=== PATIENT | female | born 1995 | race Caucasian/White ===

== ENCOUNTER 2022-01-21 14:09 | Emergency (ER) | payer MEDICAID ==
[~2022-01-21] VITALS: Ht 167.6 cm; Wt 92.1 kg
[2022-01-21 14:13] VITALS: BP 138/75
--- NOTE | 2022-01-21 14:34 | NUR ---
26 Y/O F C/O WENT TO [facility] TODAY TO CONFIRM AND ASK FOR MADICATION. WAS CONFIRMED BY URINE. SHE WAS TOLD TO GO TO ER TO R/O POSSIBLE ECTOPIC . NAHID PMH: GASTRIC SLEEVE 10/2021
--- NOTE | 2022-01-21 14:34 | NUR ---
ULTRASOUND AT BEDSIDE.
--- NOTE | 2022-01-21 14:37 | NUR ---
LAB AT BEDSIDE.
--- NOTE | 2022-01-21 14:52 | NUR ---
26/F PRESENTS TO ED S/P REFERRAL [facility]. PATIENT STATES SHE WENT TO [facility] REQUESTING TO CONFIRM , STATES SHE HAD A POSITIVE URINE TEST AND ULTRASOUND SHOWED POSSIBLE ECTOPIC . PATIENT DENIES N/V/D, ABDOMINAL PAIN, HEADACHE, DIZZINESS.
--- NOTE | 2022-01-21 14:58 | NUR ---
Jerardo camarillo in [facility] - 01/21/22 at 1458 by [email or web address] ULTRASOUND AT PATIENT BEDSIDE
--- NOTE | 2022-01-21 14:59 | NUR ---
ULTRASOUND AT BEDSIDE.
[2022-01-21 15:32] LABS: BASOPHILS % (AUTO) 0.4 % (0.0-2.0); EOSINOPHILS % (AUTO) 0.4 % (0.0-4.0); HEMOGLOBIN 12.9 g/dL (12.0-16.0); LYMPHOCYTES # (AUTO) 1.5 K/uL (2.5-16.5); LYMPHOCYTES % (AUTO) 18.5 % (20.5-51.1); MEAN CORPUSCULAR HEMOGLOBIN 25 pg (27-31); MEAN CORPUSCULAR HGB CONC 32 g/dL (33-37); MEAN CORPUSCULAR VOLUME 77.7 fL (80-94); MONOCYTES # (AUTO) 0.4 K/uL (0.8-1.0); MONOCYTES % (AUTO) 4.4 % (1.7-9.3); NEUTROPHILS # (AUTO) 6.3 K/uL (1.8-7.7); NEUTROPHILS % (AUTO) 76.3 % (42.2-75.2); PLATELET COUNT (AUTO) 266 K/uL (140-450); RED BLOOD CELL COUNT(AUTO) 5.14 MIL/uL (4.20-5.40); RED CELL DISTRIBUTION WIDTH 13.9 % (11.6-13.7); WHITE BLOOD COUNT (AUTO) 8.3 K/uL (4.8-10.8)
[2022-01-21 15:36] LABS: ANION GAP 14.8 (8-16); CARBON DIOXIDE 25.1 mmol/L (21-32); CREATININE 0.6 mg/dL (0.6-1.3); POTASSIUM 3.9 mmol/L (3.5-5.1)
[2022-01-21 15:43] LABS: APPEARANCE,URINE CLEAR (CLEAR); BILIRUBIN,URINE 1+ (NEGATIVE); BLOOD, URINE NEGATIVE (NEGATIVE); COLOR,URINE YELLOW (YELLOW); LEUKOCYTE ESTERASE ,URINE NEGATIVE (NEGATIVE); NITRITE, URINE NEGATIVE (NEGATIVE); UGLUCOSE NEGATIVE (NEGATIVE)
[2022-01-21 16:05] LABS: RBC,URINE 0-5 /HPF (0-5); TRICHOMONAS,URINE None Seen /HPF (None Seen); WBC,URINE 0-5 /HPF (0-5); YEAST,URINE None Seen /HPF (None Seen)
[2022-01-21 16:06] LABS: CALCIUM OXALATE CRYSTALS,UR None Seen /HPF (None Seen); COARSE GRANULAR CASTS,URINE None Seen /LPF (None Seen); FINE GRANULAR CASTS,URINE None Seen /LPF (None Seen); HYALINE CASTS, URINE None Seen /LPF (None Seen); OTHER CASTS, URINE None Seen /LPF (None Seen); OTHER CRYSTALS,URINE None Seen /HPF (None Seen); RED BLOOD CELL CASTS,URINE None Seen /LPF (None Seen); TRIPLE PHOSPHATE CRYSTAL,UR None Seen /HPF (None Seen); URIC ACID CRYSTALS,URINE None Seen /HPF (None Seen); URINE AMORPHOUS URATE None Seen /HPF (None Seen); WAXY CASTS,URINE None Seen /LPF (None Seen)
[2022-01-21 17:09] VITALS: BP 106/56
--- NOTE | 2022-01-21 17:10 | NUR ---
Patient discharged with v/s stable. Written and verbal after care instructions given and explained. Patient verbalized understanding. Ambulatory with steady gait. All questions addressed prior to discharge. Advised to follow up with PMD.
--- NOTE | 2022-01-21 17:12 | NUR ---
The patient's care was reviewed and supervised by Elina Rose RN.
== END 2022-01-21 17:10 | disposition home or self-care (01) ==
LOC: MED 14:09
DX: O26.891 Other specified pregnancy related conditions, first trimester (principal); R10.30 Lower abdominal pain, unspecified; Z87.42 Personal history of other diseases of the female genital tract; Z98.84 Bariatric surgery status
CPT/HCPCS: 36415; 76817; 80048; 81001; 81025; 84702; 85025; 86900; 86901; 99284; Q0092